=== PATIENT | male | born 1970 | race Caucasian/White ===

== ENCOUNTER 2016-08-16 14:04 | Emergency (ER) | payer OTHER ==
[~2016-08-16 14:04] MED LIST: NO HOME MEDS; NORCO 5-325 TA1 EACH PO; XARELTO15 M1 PO; XARELTO20 M1 PO
[2016-08-16] MEDS ORDERED: ZYRTEC10 M7 PO (14:13)
[2016-08-16 14:40] LABS: BASO % 0.2 % (0-2); EOS % 0.9 % (0-7); EOSINOPHIL ABSOLUTE COUNT 0.2 tho/cmm (0.0-0.7); HCT-HEMATOCRIT 46.4 % (36.0-53.5); HGB-HEMOGLOBIN 15.6 gm/dl (13.5-17.0); IMMATURE GRANULOCYTES ABSOLUTE 0.08 tho/cmm (0-0.03); IMMATURE GRANULOCYTES PERCENT 0.4 % (0-0.3); LYMPH % 7.1 % (20-45); LYMPH ABSOLUTE COUNT 1.3 tho/cmm (0.8-4.5); MCH (MEAN CORPUSCULAR HGB) 29.6 pg (28.0-32.0); MCHC MEAN CORPUSCULAR HGB CONC 33.6 % (32.0-36.0); MEAN PLATELET VOLUME 10.8 cmc (9.4-12.4); MONO % 5.1 % (0-12); MONOCYTE ABSOLUTE COUNT 0.9 tho/cmm (0.0-1.2); NEUTROPHIL ABSOLUTE COUNT 15.8 tho/cmm (1.6-8.0); NEUTROPHIL-AUTOMATED 15.8 tho/cmm (1.6-8.0); NEUTROPHILS % 86.3 % (40-80); PLATELET COUNT 232 tho/cmm (150-450); RED BLOOD COUNT 5.27 mil/cmm (4.40-5.70); RED CELL DISTRIBUTION WIDTH 12.9 % (12.4-16.4); WHITE BLOOD COUNT 18.4 tho/cmm (4.0-10.0)
[2016-08-16 14:46] LABS: INR 0.8 INR (0.9-1.1); PROTHROMBIN TIME 9.7 SECONDS (9.0-13.6)
[2016-08-16 14:59] LABS: ALB/GLOB RATIO 1.1 (0.8-2.0); ALBUMIN 4.1 g/dl (3.5-5.0); ALKALINE PHOSPHATASE 41 U/L (33-138); ALT/SGPT 31 U/L (12-78); BILIRUBIN,TOTAL 0.5 mg/dl (0.0-1.5); BLOOD UREA NITROGEN 12 mg/dl (6-24); CALCIUM 9.1 mg/dl (8.5-10.5); CARBON DIOXIDE-VENOUS 26 mmol/L (22-32); CHLORIDE 105 mmol/l (96-110); CREATININE 1.14 mg/dl (0.60-1.30); GLUCOSE 109 mg/dL (70-110); SODIUM 142 mmol/L (135-145); eGFR VALUE FOR BLACK >90 mL/Min
[2016-08-16 15:04] LABS: ANION GAP 15 mmol/L (0-20); POTASSIUM 3.9 mmol/L (3.7-5.1)
[2016-08-16 15:05] LABS: AST/SGOT 25 U/L (10-40)
[2016-08-16] MEDS ORDERED: AUGMENTIN 875-1 EAC2 PO ×2 (15:42→16:06)
[2016-08-16] MEDS ORDERED: NORCO 5-325 TA1 EACH PO (16:06)
== END 2016-08-16 17:25 ==
LOC: EDMED 14:04
PROVIDERS: Emergency Medicine
DX: K61.1 Rectal abscess (principal); Z98.890 Other specified postprocedural states
CPT/HCPCS: J0295; J2250; J2270; J2405; J7030